=== PATIENT | female | born 2000 | race African-American/Black ===

== ENCOUNTER 2024-04-03 10:17 | Emergency (ER) | payer SELFPAY ==
[~2024-04-03] VITALS: Ht 160 cm; Wt 52.3 kg
[2024-04-03 10:34] VITALS: TEMP 98.9
[2024-04-03] MEDS ORDERED: PENI500T2 PO (12:14)
[2024-04-03] MEDS ORDERED: IBUP-1492 PO (12:14)
[2024-04-03 12:15] VITALS: BP 120/85; PULSE 70; RESP 16
== END 2024-04-03 12:48 | disposition home or self-care (01) ==
LOC: EMS 10:17
DX: K04.7 Periapical abscess without sinus (principal)
CPT/HCPCS: 99283; Z7502